=== PATIENT | female | born 1995 | race Caucasian/White ===

== ENCOUNTER 2017-07-06 00:29 | Emergency (ER) | payer BC ==
[2017-07-06] MEDS ORDERED: Ketorolac 60 MG/2 ML SDV IM ONE (00:49)
[2017-07-06] MEDS ORDERED: HYDROmorphone 1 MG/ML Syringe IM ONE ×2 (00:49→01:01)
--- NOTE | 2017-07-06 00:54 | EDM.PDOC ---
ED HPI GENERAL MEDICAL PROBLEM - General Chief Complaint: ENT Problem Stated Complaint: RIGHT SIDE JAW PAIN Time Seen by Provider: 07/06/17 00:41 Source of Information: Reports: Patient History Limitations: Reports: No Limitations - History of Present Illness INITIAL COMMENTS - FREE TEXT/NARRATIVE: The patient presents with right ear and jaw pain. This has been going on for about 2 weeks. She was given amoxicillin for an ear infection but that did not help. The pain is made worse by chewing or opening her jaw. She has no fever or chills. She has no dental pain. She has no other complaints at this time. Onset: Gradual Duration: Week(s): (2) Location: Reports: Other (Right ear and jaw) Quality: Reports: Sharp Severity: Moderate Improves with: Reports: Immobilization Worsens with: Reports: Movement Associated Symptoms: Reports: No Other Symptoms Right Ear Pain Score (Numeric/FACES): 10 - Related Data Allergies Allergy/AdvReac Type Severity Reaction Status Date / Time No Known Allergies Allergy Verified 07/06/17 00:40 Home Meds: Home Meds Ferrous Sulfate [Iron] 325 mg PO DAILY 07/06/17 [History] Vit B12/Fa/Pyridoxine HCl/AA15 [Glycotrol] 1 cap PO DAILY 07/06/17 [History] Past Medical History - Past Health History Medical/Surgical History: Denies Medical/Surgical History Social & Family History - Tobacco Use Smoking Status *Q: Never Smoker Second Hand Smoke Exposure: No - Alcohol Use Days Per Week of Alcohol Use: 0 - Recreational Drug Use Recreational Drug Use: No ED ROS ENT - Review of Systems Review Of Systems: See Below Constitutional: Reports: No Symptoms HEENT: Reports: Ear Pain (and right jaw pain) Respiratory: Reports: No Symptoms Cardiovascular: Reports: No Symptoms Endocrine: Reports: No Symptoms GI/Abdominal: Reports: No Symptoms : Reports: No Symptoms Musculoskeletal: Reports: No Symptoms ED EXAM, ENT - Physical Exam Exam: See Below Exam Limited By: No Limitations General Appearance: Alert, No Apparent Distress Ears: Normal External Exam, Normal Canal, Normal TMs Nose: Normal Inspection Mouth/Throat: Normal Inspection, Normal Gums, Normal Lips, Normal Oropharynx, Normal Teeth, Other Head: Atraumatic, Normocephalic, Other (Pain upon palpation to the right TMJ. There is some mils crepitus felt when opening her jaw in the right TMJ.) Neck: Normal Inspection, Supple, Non-Tender Respiratory/Chest: No Respiratory Distress, Lungs Clear, Normal Breath Sounds Cardiovascular: Regular Rate, Rhythm, No Edema, No Murmur GI/Abdominal: Soft, Non-Tender, No Organomegaly, No Mass Back: Normal Inspection Extremities: Normal Inspection Course - Vital Signs Last Recorded V/S: Last Vital Signs Temp 97.3 F 07/06/17 00:36 Pulse 70 07/06/17 00:36 Resp 18 07/06/17 00:36 BP 131/89 07/06/17 00:36 Pulse Ox 100 07/06/17 00:36 - Re-Assessments/Exams Free Text/Narrative Re-Assessment/Exam: 07/06/17 00:53 I ordered some toradol 60m IM and dilaudid 1mg IM. She has TMJ. She has muscle relaxers. I will give her some percocet for pain. Departure - Departure Time of Disposition: 00:55 Disposition: Home, Self-Care 01 Condition: Good Clinical Impression: TMJ (temporomandibular joint disorder) - Discharge Information Referrals: Veronica Ruiz NP [Primary Care Provider] - Art Kelly MD [Ordering Only Provider] - 1 Week Additional Instructions: Eat a soft diet. You may use ice or head to your jaw 2 to 3 times per day. Take an antiinflammatory such as motrin or aleve. Take the percocet as needed for pain. Follow up with Dr Travis Kelly or one of his partners. He is an ENT doctor at [facility] in [place]. His number is . Please return if you are worse.
[2017-07-06] MEDS ORDERED: HYDROmorphone 0.5 MG/0.5 ML SYRINGE ONE (00:59)
== END 2017-07-06 01:07 | disposition home or self-care (01) ==
LOC: JD.ED 00:29
DX: M26.69 Other specified disorders of temporomandibular joint (principal); Z79.899 Other long term (current) drug therapy
CPT/HCPCS: 96372; 99283; J1170; J1885

== ENCOUNTER 2018-10-10 02:55 | Inpatient (IN) | payer OTHER, BC ==
[2018-10-10] MEDS ORDERED: Sodium Chloride 0.9% 10 ML Syringe FLUSH PRN (10:12)
[2018-10-10] MEDS ORDERED: Nalbuphine 10 MG/1 ML Vial IVPUSH PRN (10:12)
[2018-10-10] MEDS ORDERED: Ondansetron 4 MG/2 ML SDV IVPUSH PRN ×2 (10:12→12:37)
[2018-10-10] MEDS ORDERED: Oxytocin/Lactated Ringers 10 UNIT/1,000 ML BAG IV SCH ×2 (10:15)
--- NOTE | 2018-10-10 10:15 | PCM.LDHP ---
L&D History of Present Illness - General Date of Service: 10/10/18 Admit Problem/Dx: Patient Status Order with Admit Dx/Problem 10/10/18 10:12 Patient Status [ADT] Routine Admission Diagnosis/Problem Admission Diagnosis/Problem Source of Information: Patient History Limitations: Reports: No Limitations - History of Present Illness Introduction:: Patient is a 23 y/o at 37 3/7 wks who presents for IOL for complaints of gross itching involving also her palms - concerns for cholestasis. Doing well otherwise. 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 Has had no signs of heart block throughout - Related Data Allergies/Adverse Reactions: Allergies Allergy/AdvReac Type Severity Reaction Status Date / Time animal dander Allergy Sneezing Verified 10/10/18 10:28 house dust Allergy Sneezing Verified 10/10/18 10:28 pollen extracts Allergy Sneezing Verified 10/10/18 10:28 Past Medical History Gastrointestinal History: Reports: Irritable Bowel Syndrome Genitourinary History: Reports: Pyelonephritis [employer] History: Reports: : 1 Para: 0 LMP (Approximate): Immunologic History: Reports: Other (See Below) (SSA positive) - Past Surgical History HEENT Surgical History: Reports: Eye Surgery, Oral Surgery Musculoskeletal Surgical History: Reports: Other (See Below) (finger surgery) Social & Family History - Tobacco Use Smoking Status *Q: Never Smoker - Caffeine Use Caffeine Use: Reports: None - Alcohol Use Alcohol Use History: No - Recreational Drug Use Recreational Drug Use: No H&P Review of Systems - Review of Systems: Review Of Systems: See Below General: Reports: No Symptoms Pulmonary: Reports: No Symptoms Cardiovascular: Reports: No Symptoms Gastrointestinal: Reports: No Symptoms Genitourinary: Reports: No Symptoms Musculoskeletal: Reports: No Symptoms Skin: Reports: Pruritis Neurological: Reports: No Symptoms L&D Exam - Exam Exam: See Below - OB Specific Contraction Intensity: Irritability Movement: Active Heart Tones: Present Heart Tones per Min: 135 Heart Rate (FHR) Variability: Moderate (6-25 bmp) Presentation: Vertex - Cardona Score Cardona Score Cervix Position: Posterior Cardona Score Consistency: Soft Cardona Score Effacement: 31-50% Cardona Score Dilation: 1-2 cm Cardona Score 's Station: -2 Cardona Score Total: 5 - Exam General: Alert, Oriented, Cooperative Lungs: Clear to Auscultation, Normal Respiratory Effort Cardiovascular: Regular Rate, Regular Rhythm GI/Abdominal Exam: Soft, Non-Tender Genitourinary: Normal external exam Extremities: Normal Inspection Skin: Warm, Dry, Intact - Patient Data Result Diagrams: 10/10/18 10:28 - Problem List (1) JESISE positive SNOMED Code(s): 406196798 ICD Code: R76.8 - OTHER SPECIFIED ABNORMAL IMMUNOLOGICAL FINDINGS IN SERUM Status: Acute Current Visit: Yes (2) SS-A antibody positive SNOMED Code(s): 617633958 ICD Code: R76.8 - OTHER SPECIFIED ABNORMAL IMMUNOLOGICAL FINDINGS IN SERUM Status: Acute Current Visit: Yes (3) 37 weeks gestation of SNOMED Code(s): 39591907 ICD Code: Z3A.37 - 37 WEEKS GESTATION OF Status: Acute Current Visit: Yes Problem List Initiated/Reviewed/Updated: Yes Orders Last 24hrs: Active Orders 24 hr Category Date Time Status Patient Status [ADT] Routine ADT 10/10/18 10:12 Ordered Activity as Tolerated [RC] PFP Care 10/10/18 10:12 Ordered Communication Order [RC] ASDIRECTED Care 10/10/18 10:12 Ordered Communication Order [RC] ASDIRECTED Care 10/10/18 10:12 Ordered Communication Order [RC] ASDIRECTED Care 10/10/18 10:12 Ordered Heart Tones [RC] ASDIRECTED Care 10/10/18 10:12 Ordered Monitoring [RC] INTERMITTENT Care 10/10/18 10:12 Ordered Non Stress Test [RC] PER UNIT ROUTINE Care 10/10/18 10:12 Ordered Notify Provider [RC] ASDIRECTED Care 10/10/18 10:12 Ordered Notify Provider [RC] PRN Care 10/10/18 10:12 Ordered Peripheral IV Care [RC] . DIRECTED Care 10/10/18 10:12 Ordered Vaginal Exam [RC] ASDIRECTED Care 10/10/18 10:12 Ordered Vital Signs [RC] ASDIRECTED Care 10/10/18 10:12 Ordered Regular Diet [DIET] Diet 10/10/18 Breakfast Ordered CBC W/O DIFF,HEMOGRAM [HEME] Routine Lab 10/10/18 10:12 Ordered RAPID PLASMA REAGIN,RPR [CHEM] Routine Lab 10/10/18 10:12 Ordered TYPE AND SCREEN [BBK] Routine Lab 10/10/18 10:12 Ordered Lactated Ringers [Ringers, Lactated] 1,000 ml Med 10/10/18 10:15 Ordered IV ASDIRECTED Nalbuphine [Nubain] Med 10/10/18 10:12 Ordered 10 mg IVPUSH Q2H PRN Ondansetron [Zofran] Med 10/10/18 10:12 Ordered 4 mg IVPUSH Q4H PRN Oxytocin/Lactated Ringers [Pitocin in LR 10 Units/1,000 Med 10/10/18 10:15 Ordered ML] 10 unit in 1,000 ml IV .CONTINUOUS Oxytocin/Lactated Ringers [Pitocin in LR 10 Units/1,000 Med 10/10/18 10:15 Ordered ML] 10 unit in 1,000 ml IV TITRATE Sodium Chloride 0.9% [Saline Flush] Med 10/10/18 10:12 Ordered 10 ml FLUSH ASDIRECTED PRN miSOPROStol [Cytotec] Med 10/10/18 10:12 Ordered 25 mcg VAG Q4H PRN Electronic Heart Tones Ext w TOCO [WOMSER] Oth 10/10/18 10:12 Ordered Routine Electronic Heart Tones Internal [WOMSER] Per Unit Oth 10/10/18 10:12 Ordered Routine Peripheral IV Insertion Adult [OM.PC] Routine Oth 10/10/18 10:12 Ordered Resuscitation Status Routine Resus Stat 10/10/18 10:12 Ordered Assessment/Plan Comment:: 23 y/o at 37 3/7 wks who presents for diffuse pruritus involving the palms concerning for cholestasis. Bile acids pending * Labs * GBS negative, no need for antibiotics * Salazar bulb and cytotec for IOL. AROM when able * Pain management per patient preference * Anticipate
[2018-10-10] MEDS: Misoprostol 25 MCG (1/4 of 100 MCG) Tab VAG PRN ×2 (10:48→14:48)
[2018-10-10] MEDS ORDERED: ePHEDrine 50 MG/ML SDV IVPUSH PRN (12:37)
[2018-10-10] MEDS ORDERED: fentaNYL 100 MCG/2 ML SDV EPIDUR PRN (12:37)
--- NOTE | 2018-10-10 12:37 | PCM.PREANE ---
Preanesthetic Assessment - Anesthesia/Transfusion/Family Hx Anesthesia History: Prior Anesthesia Without Reaction Family History of Anesthesia Reaction: No Transfusion History: No Prior Transfusion(s) Intubation History: Unknown - Review of Systems General: No Symptoms, Fatigue Pulmonary: No Symptoms Cardiovascular: No Symptoms, Palpitations (History of PVC's), Lightheadedness ( positonal changes.) Gastrointestinal: No Symptoms (GERD), Diarrhea, Nausea Neurological: No Symptoms (Lower back pain pain (5/10)) Other: Reports: None, Easy Bruising - Physical Assessment NPO Status Date: 10/10/18 NPO Status Time: 13:00 Pulse: 71 O2 Sat by Pulse Oximetry: 99 Respiratory Rate: 18 Blood Pressure: 120/74 Temperature: 37.1 C Vital Signs: Last Vital Signs Temp 37.1 C 10/10/18 10:12 Pulse 71 10/10/18 10:12 Resp 18 10/10/18 10:12 BP 120/74 10/10/18 10:12 Pulse Ox Height: 1.6 m Weight: 71.668 kg ASA Class: 2 Mental Status: Alert & Oriented x3 Airway Class: Mallampati = 2 Dentition: Reports: Normal Dentition, Caries Thyro-Mental Finger Breadths: 3 Mouth Opening Finger Breadths: 3 ROM/Head Extension: Full Lungs: Clear to Auscultation, Normal Respiratory Effort Cardiovascular: Regular Rate, Regular Rhythm, No Murmurs - Lab Values: Laboratory Last Values WBC 9.26 K/mm3 (3.98-10.04) 10/10/18 10:28 RBC 3.86 M/mm3 (3.98-5.22) L 10/10/18 10:28 Hgb 11.0 gm/L (11.2-15.7) L D 10/10/18 10:28 Hct 33.5 % (34.1-44.9) L 10/10/18 10:28 MCV 86.8 fl (79.4-94.8) 10/10/18 10:28 MCH 28.5 pg (25.6-32.2) 10/10/18 10:28 MCHC 32.8 g/dl (32.2-35.5) 10/10/18 10:28 RDW Std Deviation 42.8 fL (36.4-46.3) 10/10/18 10:28 Plt Count 236 K/mm3 (182-369) 10/10/18 10:28 MPV 10.7 fl (9.4-12.3) 10/10/18 10:28 Blood Type O POSITIVE 10/10/18 10:28 Gel Antibody Screen Negative 10/10/18 10:28 Above labs reviewed and noted and within acceptable ranges to proceed with epidural if desired. - Allergies Allergies/Adverse Reactions: Allergies Allergy/AdvReac Type Severity Reaction Status Date / Time animal dander Allergy Sneezing Verified 10/10/18 10:28 house dust Allergy Sneezing Verified 10/10/18 10:28 pollen extracts Allergy Sneezing Verified 10/10/18 10:28 - Anesthesia Plan Pre-Op Medication Ordered: None - Acknowledgements Anesthesia Type Planned: Epidural Pt an Appropriate Candidate for the Planned Anesthesia: Yes Alternatives and Risks of Anesthesia Discussed w Pt/Guardian: Yes Pt/Guardian Understands and Agrees with Anesthesia Plan: Yes PreAnesthesia Questionnaire - Past Health History Medical/Surgical History: Denies Medical/Surgical History HEENT History: Reports: Other (See Below) Other HEENT History: right eye surgery 1995 and 2017. 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, low serum complement c3 - Past Surgical History HEENT Surgical History: Reports: Oral Surgery - SUBSTANCE USE Smoking Status *Q: Never Smoker Recreational Drug Use History: No - CURRENT (IN HOUSE) MEDS Current Meds: Current Medications Lactated Ringer's (Ringers, Lactated) 1,000 mls @ 40 mls/hr IV ASDIRECTED MARCO ANTONIO Oxytocin/Lactated Ringer's (Pitocin In Lr 10 Units/1,000 Ml) 10 unit in 1,000 mls @ 12 mls/hr IV TITRATE MARCO ANTONIO; Protocol Oxytocin/Lactated Ringer's (Pitocin In Lr 10 Units/1,000 Ml) 10 unit in 1,000 mls @ 500 mls/hr IV .CONTINUOUS MARCO ANTONIO Misoprostol (Cytotec) 25 mcg VAG Q4H PRN PRN Reason: cervical ripening Last Admin: 10/10/18 10:48 Dose: 25 mcg Nalbuphine HCl (Nubain) 10 mg IVPUSH Q2H PRN PRN Reason: Pain Ondansetron HCl (Zofran) 4 mg IVPUSH Q4H PRN PRN Reason: Nausea/Vomiting Sodium Chloride (Saline Flush) 10 ml FLUSH ASDIRECTED PRN PRN Reason: Keep Vein Open
[2018-10-10] MEDS ORDERED: Phenylephrine 1 MG in Sodium Chloride 0.9% 10 ML IV SCH (12:45)
[2018-10-10] MEDS ORDERED: Bupivacaine/fentaNYL/NS 100 ML Bag EPIDUR SCH (12:45)
[2018-10-10] MEDS ORDERED: Acetaminophen 325 MG Tab PO ONE (14:11)
[2018-10-10] MEDS: Lactated Ringers 1,000 ML IV SCH ×2 (20:11→21:15)
--- NOTE | 2018-10-10 20:24 | PCM.PNLD ---
Labor Progress Note - VS & Meds Vital Signs: Last Vital Signs Temp 37.1 C 10/10/18 13:22 Pulse 71 10/10/18 13:22 Resp 18 10/10/18 13:22 BP 120/74 10/10/18 13:22 Pulse Ox 99 10/10/18 13:22 Active Medications: Current Medications Ephedrine Sulfate (Ephedrine Sulfate) 5 mg IVPUSH ASDIRECTED PRN PRN Reason: Hypotension Fentanyl (Sublimaze) 100 mcg EPIDUR Q3H PRN PRN Reason: Pain Last Admin: 10/10/18 19:49 Dose: 100 mcg Fentanyl/Bupivacaine HCl (Fentanyl/Bupivacaine/Ns 2 Mcg-0.125% 100 Ml) 100 ml EPIDUR ASDIRECTED MARCO ANTONIO Last Admin: 10/10/18 19:49 Dose: 100 ml Lactated Ringer's (Ringers, Lactated) 1,000 mls @ 40 mls/hr IV ASDIRECTED MARCO ANTONIO Last Admin: 10/10/18 20:11 Dose: 999 mls/hr Oxytocin/Lactated Ringer's (Pitocin In Lr 10 Units/1,000 Ml) 10 unit in 1,000 mls @ 12 mls/hr IV TITRATE MARCO ANTONIO; Protocol Oxytocin/Lactated Ringer's (Pitocin In Lr 10 Units/1,000 Ml) 10 unit in 1,000 mls @ 500 mls/hr IV .CONTINUOUS MARCO ANTONIO Phenylephrine HCl 1 mg/ Sodium (Chloride) 10.1 mls @ 1 mls/sec IV TITRATE MARCO ANTONIO; Protocol Misoprostol (Cytotec) 25 mcg VAG Q4H PRN PRN Reason: cervical ripening Last Admin: 10/10/18 14:48 Dose: 25 mcg Nalbuphine HCl (Nubain) 10 mg IVPUSH Q2H PRN PRN Reason: Pain Ondansetron HCl (Zofran) 4 mg IVPUSH Q4H PRN PRN Reason: Nausea/Vomiting Ondansetron HCl (Zofran) 4 mg IVPUSH ONETIME PRN PRN Reason: Nausea/Vomiting Sodium Chloride (Saline Flush) 10 ml FLUSH ASDIRECTED PRN PRN Reason: Keep Vein Open Discontinued Medications Acetaminophen (Tylenol) 650 mg PO NOW ONE Stop: 10/10/18 14:12 Last Admin: 10/10/18 14:20 Dose: 650 mg - Uterine Contractions Uterine Monitoring Mode: External [place] Contraction Intensity: Moderate Uterine Resting Tone: Soft - Monitoring Monitor Mode: External Ultrasound Heart Rate (FHR) Baseline: 130 Heart Rate (FHR) Variability: Moderate (6-25 bmp) Accelerations: Present, 15x15 Decelerations: None Strip Review: Category I - Vaginal Exam Dilation (cm): 4 Effacement (Percent): 50 Station: -2 Cervical Position: Midposition - Labor Progress (Free Text) Labor Progress: Doing well. Just received epidural. AROM performed with release of scant amount of clear fluid. Continue present management
[2018-10-10] MEDS ORDERED: diphenhydrAMINE 50 MG/ML SDV IVPUSH ONE (21:19)
--- NOTE | 2018-10-11 03:21 | PCM.DEL ---
L & D Note - General Info Date of Service: 10/11/18 - Delivery Note Labor: Induced by ARM, Induced by Oxytocin Cervical Ripening Method: Balloon Device, Misoprostil Delivery Outcome: Livebirth Infant Delivery Method: Spontaneous Vaginal Delivery-Single Delivery Mode: Spontaneous Presentation: Right Occiput Anterior (GEMMA) Nuchal Cord: None Anesthesia Type: Epidural Amniotic Fluid Description: Clear Episiotomy Type: None Laceration: Periurethral Suture type: Vicryl Suture size: 3-0 Placenta: Intact, Spontaneous Cord: 3 Vessels Estimated Blood Loss: 200 Resuscitation Needed: Yes [place]: Bulb Syringe, Stimulated, Warmed, [address] Used, Warmer Used Delivery Comments (Free Text/Narrative):: Patient round to be complete. With maternal pushing effort head delivered from an GEMMA presentation. No nuchal cord present. With gentle downward traction the shoulders and body delivered. Infant placed on maternal abdomen. Cord clamped and cut. Cord blood obtained. Placenta allowed time to separate and expelled intact. Inspection of the perineum showed small bilateral periurethral tears. Right sided year reapproximated with single suture of 3-0 vicryl. - General Info Date of Service: 10/11/18 - Patient Data Vitals - Most Recent: Last Vital Signs Temp 37.1 C 10/10/18 13:22 Pulse 71 10/10/18 13:22 Resp 18 10/10/18 13:22 BP 120/74 10/10/18 13:22 Pulse Ox 99 10/10/18 13:22 Weight - Most Recent: 71.668 kg I&O - Last 24 Hours: Intake & Output 10/10/18 10/10/18 10/11/18 14:59 22:59 06:59 Intake Total 1999 Balance 1999 Lab Results Last 24 Hours: Laboratory Results - last 24 hr 10/10/18 10/10/18 10/10/18 Range/Units 10:28 10:28 10:28 WBC 9.26 (3.98-10.04) K/mm3 RBC 3.86 L (3.98-5.22) M/mm3 Hgb 11.0 L D (11.2-15.7) gm/L Hct 33.5 L (34.1-44.9) % MCV 86.8 (79.4-94.8) fl MCH 28.5 (25.6-32.2) pg MCHC 32.8 (32.2-35.5) g/dl RDW Std Deviation 42.8 (36.4-46.3) fL Plt Count 236 (182-369) K/mm3 MPV 10.7 (9.4-12.3) fl RPR Non-reactive (NONREACTIVE) Blood Type O POSITIVE Gel Antibody Screen Negative Med Orders - Current: Current Medications Ephedrine Sulfate (Ephedrine Sulfate) 5 mg IVPUSH ASDIRECTED PRN PRN Reason: Hypotension Fentanyl (Sublimaze) 100 mcg EPIDUR Q3H PRN PRN Reason: Pain Last Admin: 10/10/18 19:49 Dose: 100 mcg Fentanyl/Bupivacaine HCl (Fentanyl/Bupivacaine/Ns 2 Mcg-0.125% 100 Ml) 100 ml EPIDUR ASDIRECTED MARCO ANTONIO Last Admin: 10/10/18 19:49 Dose: 100 ml Lactated Ringer's (Ringers, Lactated) 1,000 mls @ 40 mls/hr IV ASDIRECTED MARCO ANTONIO Last Admin: 10/10/18 21:15 Dose: 40 mls/hr Oxytocin/Lactated Ringer's (Pitocin In Lr 10 Units/1,000 Ml) 10 unit in 1,000 mls @ 12 mls/hr IV TITRATE MARCO ANTONIO; Protocol Last Titration: 10/11/18 02:36 Dose: 4 munits/min, 24 mls/hr Oxytocin/Lactated Ringer's (Pitocin In Lr 10 Units/1,000 Ml) 10 unit in 1,000 mls @ 500 mls/hr IV .CONTINUOUS MARCO ANTONIO Phenylephrine HCl 1 mg/ Sodium (Chloride) 10.1 mls @ 1 mls/sec IV TITRATE MARCO ANTONIO; Protocol Misoprostol (Cytotec) 25 mcg VAG Q4H PRN PRN Reason: cervical ripening Last Admin: 10/10/18 14:48 Dose: 25 mcg Nalbuphine HCl (Nubain) 10 mg IVPUSH Q2H PRN PRN Reason: Pain Ondansetron HCl (Zofran) 4 mg IVPUSH Q4H PRN PRN Reason: Nausea/Vomiting Ondansetron HCl (Zofran) 4 mg IVPUSH ONETIME PRN PRN Reason: Nausea/Vomiting Sodium Chloride (Saline Flush) 10 ml FLUSH ASDIRECTED PRN PRN Reason: Keep Vein Open Discontinued Medications Acetaminophen (Tylenol) 650 mg PO NOW ONE Stop: 10/10/18 14:12 Last Admin: 10/10/18 14:20 Dose: 650 mg Diphenhydramine HCl (Benadryl) 25 mg IVPUSH ONETIME ONE Stop: 10/10/18 21:20 Last Admin: 10/10/18 21:37 Dose: 25 mg - Problem List & Annotations (1) JESSIE positive SNOMED Code(s): 402006607 Code(s): R76.8 - OTHER SPECIFIED ABNORMAL IMMUNOLOGICAL FINDINGS IN SERUM Status: Acute Current Visit: Yes (2) SS-A antibody positive SNOMED Code(s): 122647673 Code(s): R76.8 - OTHER SPECIFIED ABNORMAL IMMUNOLOGICAL FINDINGS IN SERUM Status: Acute Current Visit: Yes (3) 37 weeks gestation of SNOMED Code(s): 46329338 Code(s): Z3A.37 - 37 WEEKS GESTATION OF Status: Acute Current Visit: Yes (4) Vaginal delivery SNOMED Code(s): 306128040 Code(s): O80 - ENCOUNTER FOR FULL-TERM UNCOMPLICATED DELIVERY Status: Acute Current Visit: Yes - Problem List Review Problem List Initiated/Reviewed/Updated: Yes - My Orders Last 24 Hours: My Active Orders 10/10/18 10:12 Patient Status [ADT] Routine Activity as Tolerated [RC] PFP Communication Order [RC] ASDIRECTED Communication Order [RC] ASDIRECTED Communication Order [RC] ASDIRECTED Notify Provider [RC] ASDIRECTED Notify Provider [RC] PRN Vital Signs [RC] ASDIRECTED Nalbuphine [Nubain] 10 mg IVPUSH Q2H PRN Ondansetron [Zofran] 4 mg IVPUSH Q4H PRN Sodium Chloride 0.9% [Saline Flush] 10 ml FLUSH ASDIRECTED PRN miSOPROStol [Cytotec] 25 mcg VAG Q4H PRN Electronic Heart Tones Ext w TOCO [WOMSER] Routine Electronic Heart Tones Internal [WOMSER] Per Unit Routine Peripheral IV Insertion Adult [OM.PC] Routine Resuscitation Status Routine 10/10/18 10:15 Lactated Ringers [Ringers, Lactated] 1,000 ml IV ASDIRECTED Oxytocin/Lactated Ringers [Pitocin in LR 10 Units/1,000 ML] 10 unit in 1,000 ml IV .CONTINUOUS Oxytocin/Lactated Ringers [Pitocin in LR 10 Units/1,000 ML] 10 unit in 1,000 ml IV TITRATE 10/10/18 Breakfast Regular Diet [DIET] - Assessment Assessment:: 23 y/o G1 now P1001 PPD#0 from at 37 4/7 wks - IOL for pruritus involving the palms concerning for cholestasis. Bile acids pending - Plan Plan:: * Routine cares * Encourage breast feeding * Discharge home in 2 days
[2018-10-11] MEDS ORDERED: Docusate Sodium 100 MG Cap PO PRN (03:27)
[2018-10-11] MEDS ORDERED: Lanolin 100% Cream 7 GM Tube TOP PRN (03:27)
[2018-10-11] MEDS ORDERED: Benzocaine/Menthol 20%-0.5% Spray 56 GM Canister TOP PRN (03:27)
[2018-10-11] MEDS ORDERED: Witch Hazel Medicated Pads 40/Jar TOP PRN (03:27)
[2018-10-11] MEDS: Acetaminophen 325 MG Tab PO PRN ×2 (03:39→18:18)
[2018-10-11] MEDS ORDERED: Bupivacaine 0.25% 10 ML SDV ONE (04:00)
[2018-10-11] MEDS: Ibuprofen 600 MG Tab PO PRN ×2 (08:49→16:13)
--- NOTE | 2018-10-11 12:26 | PCM48HPAN ---
Post Anesthesia Note - EVALUATION WITHIN 48HRS OF ANESTHETIC Vital Signs in Normal Range: Yes Patient Participated in Evaluation: Yes Respiratory Function Stable: Yes Airway Patent: Yes Cardiovascular Function Stable: Yes Hydration Status Stable: Yes Pain Control Satisfactory: Yes Nausea and Vomiting Control Satisfactory: Yes Mental Status Recovered: Yes
[2018-10-12] MEDS: Ibuprofen 600 MG Tab PO PRN (02:02)
--- NOTE | 2018-10-12 11:08 | PCM.SN ---
- Free Text/Narrative Note: Post Progress Note PPD # 1 Subjective: Doing well overall. Ambulating without difficulty. Lochia minimal and slowing down since delivery. Voiding without difficulty. Tolerating regular diet without nausea or vomiting. Pain controlled with oral medications. Bottlefeeding with minimal difficulty. Objective: Vitals: Vital Signs - 24 hr 10/11/18 10/11/18 10/12/18 14:29 21:20 04:43 Temperature 36.7 C 37.1 C 36.6 C Pulse, 61 58 L 63 Peripheral Respiratory 14 16 14 Rate Blood Pressure 128/83 115/61 110/87 O2 Sat by Pulse 99 99 99 Oximetry 10/12/18 08:38 Temperature 36.6 C Pulse, 69 Peripheral Respiratory 16 Rate Blood Pressure 120/89 O2 Sat by Pulse 96 Oximetry Physical Exam General: Alert and oriented, no acute distress Lungs: Clear to auscultation bilaterally Heart: Regular rate and rhythm Abdomen: Soft, minimal appropriate tenderness, non-distended, fundus midline, nontender, and at the umbilicus Extremities: Trace edema in bilateral lower extremities to mid shins ASSESSMENT: 23-year-old female 001 s/p normal vaginal delivery PPD #1, complicated by SSA antibody positive with normal echocardiograms during and question of possible cholestasis of with severe itching including on the palms of her hands PLAN: Doing well Bottlefeeding with minimal difficulty. Assist as needed Lochia minimal. Continue to monitor for appropriate lochia. Continue routine care Anticipate discharge home today Ramesh Wilson MD 11:07 AM 10/12/2018
--- NOTE | 2018-10-12 11:13 | PCM.DCSUM1 ---
Discharge Summary - Hospital Course Free Text/Narrative:: Labor: Induced by ARM, Induced by Oxytocin Cervical Ripening Method: Balloon Device, Misoprostil Delivery Outcome: Livebirth Delivery Method: Spontaneous Vaginal Delivery-Single Delivery Mode: Spontaneous Presentation: Right Occiput Anterior (GEMMA) Nuchal Cord: None Anesthesia Type: Epidural Amniotic Fluid Description: Clear Episiotomy Type: None Laceration: Periurethral Suture type: Vicryl Suture size: 3-0 Placenta: Intact, Spontaneous Cord: 3 Vessels Estimated Blood Loss: 200 Resuscitation Needed: Yes : Bulb Syringe, Stimulated, Warmed, [place] Used, Warmer Used Delivery Comments (Free Text/Narrative):: Patient round to be complete. With maternal pushing effort head delivered from an GEMMA presentation. No nuchal cord present. With gentle downward traction the shoulders and body delivered. placed on maternal abdomen. Cord clamped and cut. Cord blood obtained. Placenta allowed time to separate and expelled intact. Inspection of the perineum showed small bilateral periurethral tears. Right sided year reapproximated with single suture of 3-0 vicryl. HPI Initial Comments: Labor: Induced by ARM, Induced by Oxytocin Cervical Ripening Method: Balloon Device, Misoprostil Delivery Outcome: Livebirth Infant Delivery Method: Spontaneous Vaginal Delivery-Single Delivery Mode: Spontaneous Presentation: Right Occiput Anterior (GEMMA) Nuchal Cord: None Anesthesia Type: Epidural Amniotic Fluid Description: Clear Episiotomy Type: None Laceration: Periurethral Suture type: Vicryl Suture size: 3-0 Placenta: Intact, Spontaneous Cord: 3 Vessels Estimated Blood Loss: 200 Resuscitation Needed: Yes : Bulb Syringe, Stimulated, Warmed, [place] Used, Warmer Used Delivery Comments (Free Text/Narrative):: Patient round to be complete. With maternal pushing effort head delivered from an GEMMA presentation. No nuchal cord present. With gentle downward traction the shoulders and body delivered. placed on maternal abdomen. Cord clamped and cut. Cord blood obtained. Placenta allowed time to separate and expelled intact. Inspection of the perineum showed small bilateral periurethral tears. Right sided year reapproximated with single suture of 3-0 vicryl. Brief History: Labor: Induced by ARM, Induced by Oxytocin. Cervical Ripening Method: Balloon Device, Misoprostil. Delivery Outcome: Livebirth. Infant Delivery Method: Spontaneous Vaginal Delivery-Single. Infant Delivery Mode: Spontaneous. Presentation: Right Occiput Anterior (GEMMA). Nuchal Cord: None. Anesthesia Type: Epidural. Amniotic Fluid Description: Clear. Episiotomy Type: None. Laceration: Periurethral. Suture type: Vicryl. Suture size: 3-0. Placenta: Intact, Spontaneous. Cord: 3 Vessels. Estimated Blood Loss: 200. Resuscitation Needed: Yes. : Bulb Syringe, Stimulated, Warmed, [place] Used, Warmer Used. Delivery Comments (Free Text/Narrative):: Patient round to be complete. With maternal pushing effort head delivered from an GEMMA presentation. No nuchal cord present. With gentle downward traction the shoulders and body delivered. placed on maternal abdomen. Cord clamped and cut. Cord blood obtained. Placenta allowed time to separate and expelled intact. Inspection of the perineum showed small bilateral periurethral tears. Right sided year reapproximated with single suture of 3-0 vicryl. Diagnosis: Stroke: No - Discharge Data Discharge Date: 10/12/18 Discharge Disposition: Home, Self-Care 01 Condition: Good - Discharge Diagnosis/Problem(s) (1) 37 weeks gestation of SNOMED Code(s): 87617945 ICD Code: Z3A.37 - 37 WEEKS GESTATION OF Status: Acute Current Visit: Yes (2) SS-A antibody positive SNOMED Code(s): 409630378 ICD Code: R76.8 - OTHER SPECIFIED ABNORMAL IMMUNOLOGICAL FINDINGS IN SERUM Status: Acute Current Visit: Yes (3) Vaginal delivery SNOMED Code(s): 923819191 ICD Code: O80 - ENCOUNTER FOR FULL-TERM UNCOMPLICATED DELIVERY Status: Acute Current Visit: Yes - Patient Summary/Data Complications: None Consults: None Hospital Course: Dinorah Khan was admitted for induction of labor in the setting of concern for cholestasis of was severe itching including the palms of her hands. On admission her cervix was dilated to 1-2 cm. She was GBS negative. She was given Cytotec for induction of labor. She had a transcervical Salazar bulb placed for additional cervical ripening. She was given an epidural for anesthesia. She had artificial rupture of membranes with clear fluid. She progressed to complete and began pushing. On 10/11/2018 she had a normal vaginal delivery of a live female infant at 0255. Apgars of 8 and 9. Weight of 2693 g (5 lbs. 15 oz.). Her course was uneventful. Her pain was well controlled and she had minimal lochia. She was ambulating, tolerating a regular diet and voiding normally. She was bottlefeeding with minimal difficulty. She was afebrile and her hematocrit was 33.5 on admission. She desired to be discharged home on the morning of PPD #1. Her blood type is O+. - Patient Instructions Diet: Regular Diet as Tolerated Activity: Apply Ice, As Tolerated Activity, Other: Nothing in the vagina for 6 weeks Driving: May Drive Today Showering/Bathing: May Shower Notify Provider of: Fever, Increased Pain, Swelling and Redness, Drainage, Nausea and/or Vomiting Other/Special Instructions: Please contact your physician's office if you have heavy vaginal bleeding enough to soak a pad in less than an hour for several hours. Monitor for any signs of an infection in the breasts with severe pain or redness of the breast. - Discharge Plan *PRESCRIPTION DRUG MONITORING PROGRAM REVIEWED*: Not Applicable *COPY OF PRESCRIPTION DRUG MONITORING REPORT IN PATIENT CHANDNI: Not Applicable Home Medications: Home Meds Acetaminophen [Tylenol] 650 mg PO Q6H PRN tablet 10/12/18 [Rx] Benzocaine/Menthol [Dermoplast Pain Relief [place]] 1 spray TOP ASDIRECTED PRN canister 10/12/18 [Rx] Docusate Sodium [Colace] 100 mg PO BID PRN cap 10/12/18 [Rx] Ibuprofen [Motrin] 600 mg PO Q6H PRN tablet 10/12/18 [Rx] Lanolin [Lansinoh HPA] 1 applic TOP ASDIRECTED PRN tube 10/12/18 [Rx] Witch [place] [Tucks] 1 pad TOP ASDIRECTED PRN pad 10/12/18 [Rx] Patient Handouts: Vaginal Delivery, Care After, Care of a Perineal Tear Referrals: Pita Calix MD [Primary Care Provider] - - Discharge Summary/Plan Comment DC Time >30 min.: No - Patient Data Vitals - Most Recent: Last Vital Signs Temp 36.6 C 10/12/18 08:38 Pulse 69 10/12/18 08:38 Resp 16 10/12/18 08:38 BP 120/89 10/12/18 08:38 Pulse Ox 96 10/12/18 08:38 Weight - Most Recent: 71.668 kg I&O - Last 24 hours: Intake & Output 10/11/18 10/12/18 10/12/18 22:59 06:59 14:59 Intake Total 66 Balance 66 Med Orders - Current: Current Medications Acetaminophen (Tylenol) 650 mg PO Q4H PRN PRN Reason: mild pain or fever Last Admin: 10/11/18 18:18 Dose: 650 mg Benzocaine/Menthol (Dermoplast Pain Relief [place]) 0 gm TOP ASDIRECTED PRN PRN Reason: Perineal Comfort Measure Docusate Sodium (Colace) 100 mg PO BID PRN PRN Reason: Constipation Last Admin: 10/11/18 22:06 Dose: 100 mg Emollient Ointment (Lansinoh Hpa) 0 gm TOP ASDIRECTED PRN PRN Reason: Sore Nipples Ibuprofen (Motrin) 600 mg PO Q6H PRN PRN Reason: Mild pain or fever Last Admin: 10/12/18 02:02 Dose: 600 mg Witch [place] (Tucks) 1 pad TOP ASDIRECTED PRN PRN Reason: Perineal Comfort Measure Discontinued Medications Acetaminophen (Tylenol) 650 mg PO NOW ONE Stop: 10/10/18 14:12 Last Admin: 10/10/18 14:20 Dose: 650 mg Bupivacaine HCl (Sensorcaine-Mpf 0.25%) 10 ml .ROUTE .STK-MED ONE Stop: 10/11/18 04:01 Diphenhydramine HCl (Benadryl) 25 mg IVPUSH ONETIME ONE Stop: 10/10/18 21:20 Last Admin: 10/10/18 21:37 Dose: 25 mg Ephedrine Sulfate (Ephedrine Sulfate) 5 mg IVPUSH ASDIRECTED PRN PRN Reason: Hypotension Fentanyl (Sublimaze) 100 mcg EPIDUR Q3H PRN PRN Reason: Pain Last Admin: 10/10/18 19:49 Dose: 100 mcg Fentanyl/Bupivacaine HCl (Fentanyl/Bupivacaine/Ns 2 Mcg-0.125% 100 Ml) 100 ml EPIDUR ASDIRECTED MARCO ANTONIO Last Admin: 10/10/18 19:49 Dose: 100 ml Lactated Ringer's (Ringers, Lactated) 1,000 mls @ 40 mls/hr IV ASDIRECTED MARCO ANTONIO Last Admin: 10/10/18 21:15 Dose: 40 mls/hr Oxytocin/Lactated Ringer's (Pitocin In Lr 10 Units/1,000 Ml) 10 unit in 1,000 mls @ 12 mls/hr IV TITRATE MARCO ANTONIO; Protocol Last Titration: 10/11/18 02:36 Dose: 4 munits/min, 24 mls/hr Oxytocin/Lactated Ringer's (Pitocin In Lr 10 Units/1,000 Ml) 10 unit in 1,000 mls @ 500 mls/hr IV .CONTINUOUS MARCO ANTONIO Phenylephrine HCl 1 mg/ Sodium (Chloride) 10.1 mls @ 1 mls/sec IV TITRATE MARCO ANTONIO; Protocol Misoprostol (Cytotec) 25 mcg VAG Q4H PRN PRN Reason: cervical ripening Last Admin: 10/10/18 14:48 Dose: 25 mcg Nalbuphine HCl (Nubain) 10 mg IVPUSH Q2H PRN PRN Reason: Pain Ondansetron HCl (Zofran) 4 mg IVPUSH Q4H PRN PRN Reason: Nausea/Vomiting Ondansetron HCl (Zofran) 4 mg IVPUSH ONETIME PRN PRN Reason: Nausea/Vomiting Sodium Chloride (Saline Flush) 10 ml FLUSH ASDIRECTED PRN PRN Reason: Keep Vein Open
== END 2018-10-12 11:30 | disposition home or self-care (01) | DRG 805 ==
LOC: JD.OB 02:55 → UNDOADMOB 10:00 → JD.OB 10-11 02:55 → OBSVTOIN 10-11 02:55
PROVIDERS: ADMIT Obstetrics & Gynecology; ATTEND Obstetrics & Gynecology
PROC: 10E0XZZ Delivery of Products of Conception, External Approach (ICD-10-PCS; principal; 2018-10-11)
PROC: 10907ZC Drainage of Amniotic Fluid, Therapeutic from Products of Conception, Via Natural or Artificial Opening (ICD-10-PCS; 2018-10-11)
PROC: 3E033VJ Introduction of Other Hormone into Peripheral Vein, Percutaneous Approach (ICD-10-PCS; 2018-10-11)
PROC: 3E0P7VZ Introduction of Hormone into Female Reproductive, Via Natural or Artificial Opening (ICD-10-PCS; 2018-10-11)
PROC: 0UQMXZZ Repair Vulva, External Approach (ICD-10-PCS; 2018-10-11)
PROC: 4A1HXCZ Monitoring of Products of Conception, Cardiac Rate, External Approach (ICD-10-PCS; 2018-10-11)
DX: O26.62 Liver and biliary tract disorders in childbirth (principal); K83.1 Obstruction of bile duct; Z37.0 Single live birth; O71.82 Other specified trauma to perineum and vulva; O26.893 Other specified pregnancy related conditions, third trimester; L29.8 Other pruritus; Z3A.37 37 weeks gestation of pregnancy
CPT/HCPCS: 36415; 51702; 59025; 59409; 85027; 86592; 86850; 86900; 86901; A9270-GY; J1200; J2590; J3010; J3490; J7120

== ENCOUNTER 2020-03-22 15:46 | Inpatient (IN) | payer BC ==
[2020-03-22] MEDS ORDERED: Nalbuphine 10 MG/1 ML Vial IVPUSH PRN (16:32)
[2020-03-22] MEDS ORDERED: Sodium Chloride 0.9% 10 ML Syringe FLUSH PRN (16:32)
[2020-03-22] MEDS ORDERED: Ondansetron 4 MG/2 ML SDV IVPUSH PRN (16:32)
--- NOTE | 2020-03-22 16:34 | PCM.LDHP ---
L&D History of Present Illness - General Date of Service: 03/22/20 Admit Problem/Dx: Patient Status Order with Admit Dx/Problem 03/22/20 16:32 Patient Status [ADT] Routine Admission Diagnosis/Problem Admission Diagnosis/Problem Normal Source of Information: Patient History Limitations: Reports: No Limitations - History of Present Illness Introduction:: Patient is a 24 y/o at 37 1/7 wks who presents for IOL for presumed cholestasis of . Doing well overall, but this weekend started to notice pronounced itching of the lower legs. No other exposures or other concerns - Related Data Allergies/Adverse Reactions: Allergies Allergy/AdvReac Type Severity Reaction Status Date / Time No Known Allergies Allergy Verified 03/22/20 18:08 Home Medications: Home Meds Acetaminophen/Codeine [Tylenol with Codeine No.3 300MG/30MG] 1 - 2 tab PO Q6H PRN 03/22/20 [History] Omeprazole 20 mg PO DAILY 03/22/20 [History] Ondansetron [Zofran ODT] 8 mg PO Q8HR 03/22/20 [History] Past Medical History HEENT History: Reports: Impaired Vision Respiratory History: Reports: Asthma Other Respiratory History: exercise induced asthma Gastrointestinal History: Reports: Irritable Bowel Syndrome Genitourinary History: Reports: Pyelonephritis [employer]ACH History: Reports: : 2 Para: 1 LMP (Approximate): Immunologic History: Reports: Other (See Below) (SSA positive) - Past Surgical History HEENT Surgical History: Reports: Eye Surgery, Oral Surgery Social & Family History - Tobacco Use Tobacco Use Status *Q: Never Tobacco User - Caffeine Use Caffeine Use: Reports: Coffee - Alcohol Use Alcohol Use History: No - Recreational Drug Use Recreational Drug Use: No H&P Review of Systems - Review of Systems: Review Of Systems: See Below General: Reports: No Symptoms Pulmonary: Reports: No Symptoms Cardiovascular: Reports: No Symptoms Gastrointestinal: Reports: No Symptoms Genitourinary: Reports: Incontinence Musculoskeletal: Reports: No Symptoms Skin: Reports: Pruritis Neurological: Reports: No Symptoms L&D Exam - Exam Exam: See Below - OB Specific Contraction Intensity: Mild Movement: Active Heart Tones: Present Heart Tones per Min: 145 Heart Rate (FHR) Variability: Moderate (6-25 bmp) Presentation: Vertex - Cardona Score Cardona Score Cervix Position: Posterior Cardona Score Consistency: Soft Cardona Score Effacement: 31-50% Cardona Score Dilation: 1-2 cm Cardona Score Infant's Station: -1 ,0 Cardona Score Total: 6 - Exam General: Alert, Oriented, Cooperative Lungs: Clear to Auscultation, Normal Respiratory Effort Cardiovascular: Regular Rate, Regular Rhythm GI/Abdominal Exam: Soft Genitourinary: Normal external exam Extremities: Normal Inspection Skin: Warm, Dry, Intact - Patient Data Result Diagrams: 03/22/20 17:00 03/22/20 17:00 - Problem List (1) 37 weeks gestation of SNOMED Code(s): 17236462 ICD Code: Z3A.37 - 37 WEEKS GESTATION OF Status: Acute Current Visit: No (2) JESSIE positive SNOMED Code(s): 638282385 ICD Code: R76.8 - OTHER SPECIFIED ABNORMAL IMMUNOLOGICAL FINDINGS IN SERUM Status: Acute Current Visit: No (3) SS-A antibody positive SNOMED Code(s): 580267641, 096883235 ICD Code: R76.8 - OTHER SPECIFIED ABNORMAL IMMUNOLOGICAL FINDINGS IN SERUM Status: Acute Current Visit: No (4) Solar pruritus SNOMED Code(s): 851456369 ICD Code: L29.9 - PRURITUS, UNSPECIFIED Status: Acute Current Visit: Yes Problem List Initiated/Reviewed/Updated: Yes Orders Last 24hrs: Active Orders 24 hr Category Date Time Status Patient Status [ADT] Routine ADT 03/22/20 16:32 Ordered Communication Order [RC] ASDIRECTED Care 03/22/20 16:32 Ordered Communication Order [RC] ASDIRECTED Care 03/22/20 16:32 Ordered Communication Order [RC] ASDIRECTED Care 03/22/20 16:32 Ordered Heart Tones [RC] ASDIRECTED Care 03/22/20 16:33 Ordered Non Stress Test [RC] PER UNIT ROUTINE Care 03/22/20 16:32 Ordered Notify Provider [RC] ASDIRECTED Care 03/22/20 16:32 Ordered Notify Provider [RC] PRN Care 03/22/20 16:32 Ordered Peripheral IV Care [RC] . DIRECTED Care 03/22/20 16:33 Ordered Vaginal Exam [RC] ASDIRECTED Care 03/22/20 16:32 Ordered Vital Signs [RC] ASDIRECTED Care 03/22/20 16:32 Ordered Regular Diet [DIET] Diet 03/22/20 Breakfast Ordered CBC W/O DIFF,HEMOGRAM [HEME] Stat Lab 03/22/20 16:32 Ordered CORONAVIRUS COVID-19 RUDDY [MOLEC] Stat Lab 03/22/20 16:34 Ordered RAPID PLASMA REAGIN,RPR [CHEM] Routine Lab 03/22/20 16:32 Ordered TYPE AND SCREEN [BBK] Stat Lab 03/22/20 16:32 Ordered Lactated Ringers [Ringers, Lactated] 1,000 ml Med 03/22/20 16:45 Ordered IV ASDIRECTED Nalbuphine [Nubain] Med 03/22/20 16:32 Ordered 10 mg IVPUSH Q2H PRN Ondansetron [Zofran] Med 03/22/20 16:32 Ordered 4 mg IVPUSH Q4H PRN Oxytocin/Lactated Ringers [Pitocin in LR 10 Units/1,000 Med 03/22/20 16:45 Ordered ML] 10 unit in 1,000 ml IV .CONTINUOUS Oxytocin/Lactated Ringers [Pitocin in LR 10 Units/1,000 Med 03/22/20 16:45 Ordered ML] 10 unit in 1,000 ml IV TITRATE Sodium Chloride 0.9% [Saline Flush] Med 03/22/20 16:32 Ordered 10 ml FLUSH ASDIRECTED PRN Electronic Heart Tones Ext w TOCO [WOMSER] Oth 03/22/20 16:32 Ordered Routine Electronic Heart Tones Internal [WOMSER] Per Unit Oth 03/22/20 16:32 Ordered Routine Peripheral IV Insertion Adult [OM.PC] Routine Ot 03/22/20 16:32 Ordered Resuscitation Status Routine Resus Stat 03/22/20 16:32 Ordered Assessment/Plan Comment:: * IOL for presumed cholestasis. Bile acids and CMP ordered * Admit labs * Pitocin and AROM for IOL * GBS negative * Pain management per patient preference
[2020-03-22] MEDS ORDERED: Oxytocin/Lactated Ringers 10 UNIT/1,000 ML BAG IV SCH (16:45)
[2020-03-22] MEDS: Lactated Ringers 1,000 ML IV SCH ×3 (16:54→22:39)
[2020-03-22] MEDS: Oxytocin/Lactated Ringers 10 UNIT/1,000 ML BAG IV SCH (16:55)
[2020-03-22] MEDS: diphenhydrAMINE 50 MG/ML SDV IVPUSH PRN (19:37)
[2020-03-22] MEDS ORDERED: fentaNYL 100 MCG/2 ML SDV EPIDUR PRN (20:03)
[2020-03-22] MEDS ORDERED: Bupivacaine/fentaNYL/NS 100 ML Bag EPIDUR PRN (20:03)
[2020-03-22] MEDS ORDERED: diphenhydrAMINE 50 MG/ML SDV IVPUSH PRN (20:03)
[2020-03-22] MEDS ORDERED: ePHEDrine 50 MG/ML SDV IVPUSH PRN (20:03)
--- NOTE | 2020-03-22 20:37 | PCM.PREANE ---
Preanesthetic Assessment - Procedure Proposed Procedure: Epidural - Anesthesia/Transfusion/Family Hx Anesthesia History: Prior Anesthesia Without Reaction Family History of Anesthesia Reaction: No Transfusion History: No Prior Transfusion(s) Intubation History: Unknown - Review of Systems General: Fatigue Pulmonary: No Symptoms Cardiovascular: No Symptoms Gastrointestinal: Abdominal Pain (labor) Neurological: No Symptoms Other: Reports: None - Physical Assessment Vital Signs: Last Vital Signs Temp 37.6 C 03/22/20 16:32 Pulse Resp 14 03/22/20 16:32 BP 115/73 03/22/20 16:32 Pulse Ox 100 03/22/20 16:32 Height: 1.6 m Weight: 69.309 kg ASA Class: 2 Mental Status: Alert & Oriented x3 Airway Class: Mallampati = 1 Dentition: Reports: Normal Dentition Thyro-Mental Finger Breadths: 3 Mouth Opening Finger Breadths: 3 ROM/Head Extension: Full Lungs: Clear to Auscultation, Normal Respiratory Effort Cardiovascular: Regular Rate, Regular Rhythm - Lab Values: Laboratory Last Values WBC 10.71 K/mm3 (3.98-10.04) H 03/22/20 17:00 RBC 3.65 M/mm3 (3.98-5.22) L 03/22/20 17:00 Hgb 10.5 gm/dl (11.2-15.7) L 03/22/20 17:00 Hct 31.7 % (34.1-44.9) L 03/22/20 17:00 MCV 86.8 fl (79.4-94.8) 03/22/20 17:00 MCH 28.8 pg (25.6-32.2) 03/22/20 17:00 MCHC 33.1 g/dl (32.2-35.5) 03/22/20 17:00 RDW Std Deviation 42.5 fL (36.4-46.3) 03/22/20 17:00 Plt Count 259 K/mm3 (182-369) 03/22/20 17:00 MPV 10.1 fl (9.4-12.3) 03/22/20 17:00 Sodium 136 mEq/L (136-145) 03/22/20 17:00 Potassium 3.5 mEq/L (3.5-5.1) 03/22/20 17:00 Chloride 101 mEq/L (98-107) 03/22/20 17:00 Carbon Dioxide 21 mEq/L (21-32) 03/22/20 17:00 Anion Gap 17.5 (5-15) H 03/22/20 17:00 BUN 6 mg/dL (7-18) L 03/22/20 17:00 Creatinine 0.7 mg/dL (0.55-1.02) 03/22/20 17:00 Est Cr Clr Drug Dosing TNP 03/22/20 17:00 Estimated GFR (MDRD) > 60 mL/min (>60) 03/22/20 17:00 BUN/Creatinine Ratio 8.6 (14-18) L 03/22/20 17:00 Glucose 113 mg/dL (74-106) H 03/22/20 17:00 Calcium 8.4 mg/dL (8.5-10.1) L 03/22/20 17:00 Total Bilirubin 0.3 mg/dL (0.2-1.0) 03/22/20 17:00 AST 19 U/L (15-37) 03/22/20 17:00 ALT 17 U/L (14-59) 03/22/20 17:00 Alkaline Phosphatase 157 U/L (46-116) H 03/22/20 17:00 Total Protein 6.8 g/dl (6.4-8.2) 03/22/20 17:00 Albumin 2.5 g/dl (3.4-5.0) L 03/22/20 17:00 Globulin 4.3 gm/dL 03/22/20 17:00 Albumin/Globulin Ratio 0.6 (1-2) L 03/22/20 17:00 Blood Type O POSITIVE 03/22/20 17:00 Gel Antibody Screen Negative 03/22/20 17:00 - Allergies Allergies/Adverse Reactions: Allergies Allergy/AdvReac Type Severity Reaction Status Date / Time No Known Allergies Allergy Verified 03/22/20 18:08 - Anesthesia Plan Pre-Op Medication Ordered: None - Acknowledgements Anesthesia Type Planned: Epidural Pt an Appropriate Candidate for the Planned Anesthesia: Yes Alternatives and Risks of Anesthesia Discussed w Pt/Guardian: Yes Pt/Guardian Understands and Agrees with Anesthesia Plan: Yes PreAnesthesia Questionnaire - Past Health History Medical/Surgical History: Denies Medical/Surgical History HEENT History: Reports: Impaired Vision Other HEENT History: eye surgery Cardiovascular History: Reports: Arrhythmia, Other (See Below) Other Cardiovascular History: PVC's Respiratory History: Reports: Asthma Other Respiratory History: exercise induced asthma Gastrointestinal History: Reports: GERD, Other (See Below) Other Gastrointestinal History: Cholestasis Genitourinary History: Reports: Pyelonephritis [employer] History: Reports: Musculoskeletal History: Reports: Other (See Below) Other Musculoskeletal History: hand surgery Psychiatric History: Reports: Other (See Below) Other Psychiatric History: Depression Hematologic History: Reports: Other (See Below) Other Hematologic History: positive antinuclear antibody, SS-A antibody positive, 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, low serum complement c3 Immunologic History: Reports: Other (See Below) (SSA positive) - Infectious Disease History Infectious Disease History: Reports: Novel Coronavirus - Past Surgical History HEENT Surgical History: Reports: Eye Surgery, Oral Surgery - SUBSTANCE USE Tobacco Use Status *Q: Never Tobacco User Second Hand Smoke Exposure: No Days Per Week of Alcohol Use: 0 Number of Drinks Per Day: 0 Total Drinks Per Week: 0 Recreational Drug Use History: No - HOME MEDS Home Medications: Home Meds Acetaminophen/Codeine [Tylenol with Codeine No.3 300MG/30MG] 1 - 2 tab PO Q6H PRN 03/22/20 [History] Omeprazole 20 mg PO DAILY 03/22/20 [History] Ondansetron [Zofran ODT] 8 mg PO Q8HR 03/22/20 [History] - CURRENT (IN HOUSE) MEDS Current Meds: Current Medications Diphenhydramine HCl (Benadryl) 25 mg IVPUSH Q6H PRN PRN Reason: Itching Last Admin: 03/22/20 19:37 Dose: 25 mg Documented by: Diphenhydramine HCl (Benadryl) 25 mg IVPUSH Q6H PRN PRN Reason: pruritis Ephedrine Sulfate (Ephedrine Sulfate) 5 mg IVPUSH ASDIRECTED PRN PRN Reason: Hypotension Fentanyl (Sublimaze) 100 mcg EPIDUR Q3H PRN PRN Reason: Pain Fentanyl/Bupivacaine HCl (Fentanyl/Bupivacaine/Ns 2 Mcg-0.125% 100 Ml) 100 ml EPIDUR ASDIRECTED PRN PRN Reason: Pain Oxytocin/Lactated Ringer's (Pitocin In Lr 10 Units/1,000 Ml) 10 unit in 1,000 mls @ 12 mls/hr IV TITRATE MARCO ANTONIO; Protocol Last Titration: 03/22/20 19:15 Dose: 10 munits/min, 60 mls/hr Documented by: Oxytocin/Lactated Ringer's (Pitocin In Lr 10 Units/1,000 Ml) 10 unit in 1,000 mls @ 500 mls/hr IV .CONTINUOUS MARCO ANTONIO Lactated Ringer's (Ringers, Lactated) 1,000 mls @ 40 mls/hr IV ASDIRECTED MARCO ANTONIO Last Admin: 03/22/20 19:38 Dose: 40 mls/hr Documented by: Nalbuphine HCl (Nubain) 10 mg IVPUSH Q2H PRN PRN Reason: Pain Ondansetron HCl (Zofran) 4 mg IVPUSH Q4H PRN PRN Reason: Nausea/Vomiting Sodium Chloride (Saline Flush) 10 ml FLUSH ASDIRECTED PRN PRN Reason: Keep Vein Open
[2020-03-23] MEDS ORDERED: Bupivacaine 0.25% 10 ML SDV ONE
[2020-03-23] MEDS ORDERED: ePHEDrine Sulfate/0.9% NaCl/Pf 25 MG/5 ML SYRINGE IV ONE
[2020-03-23] MEDS: diphenhydrAMINE 50 MG/ML SDV IVPUSH PRN (01:13)
[2020-03-23] MEDS: Lactated Ringers 1,000 ML IV SCH (03:05)
[2020-03-23] MEDS: Oxytocin/Lactated Ringers 10 UNIT/1,000 ML BAG IV SCH (03:05)
--- NOTE | 2020-03-23 04:41 | PCM.DEL ---
L & D Note - General Info Date of Service: 03/23/20 - Delivery Note Labor: Induced by ARM, Induced by Oxytocin Delivery Outcome: Livebirth Infant Delivery Method: Spontaneous Vaginal Delivery-Single Infant Delivery Mode: Spontaneous Presentation: Left Occiput Anterior (DARREL) Nuchal Cord: None Anesthesia Type: Epidural Amniotic Fluid Description: Clear Episiotomy Type: None Laceration: 1st Degree, Labial, Perineal Suture type: Vicryl Suture size: 2-0 Placenta: Intact, Spontaneous Cord: 3 Vessels Estimated Blood Loss: 150 Resuscitation Needed: Yes : Bulb Syringe, Stimulated, Warmed, [place] Used Delivery Comments (Free Text/Narrative):: Patient found to be complete and began pushing. With maternal pushing effort head delivered from DARREL presentation. No nuchal cord present. With gentle downward traction the shoulder and body delivered. placed on maternal abdomen. Cord clamped and cut. Cord blood collected. Placenta allowed time to separate and expelled intact. Inspection of perineum showed a small right labial tear and a small 1st degree perineal tear. These were both approximated with a 2-0 vicryl. - General Info Date of Service: 03/23/20 - Patient Data Vitals - Most Recent: Last Vital Signs Temp 37.6 C 03/22/20 16:32 Pulse Resp 14 03/22/20 16:32 BP 115/73 03/22/20 16:32 Pulse Ox 100 03/22/20 16:32 Weight - Most Recent: 69.309 kg I&O - Last 24 Hours: Intake & Output 03/22/20 03/22/20 03/23/20 14:59 22:59 06:59 Intake Total 1999 Balance 1999 - Problem List & Annotations (1) 37 weeks gestation of SNOMED Code(s): 10261670 Code(s): Z3A.37 - 37 WEEKS GESTATION OF Status: Acute Current Visit: No (2) JESSIE positive SNOMED Code(s): 575219289 Code(s): R76.8 - OTHER SPECIFIED ABNORMAL IMMUNOLOGICAL FINDINGS IN SERUM Status: Acute Current Visit: No (3) SS-A antibody positive SNOMED Code(s): 483364356, 747621915 Code(s): R76.8 - OTHER SPECIFIED ABNORMAL IMMUNOLOGICAL FINDINGS IN SERUM Status: Acute Current Visit: No (4) Solar pruritus SNOMED Code(s): 204072576 Code(s): L29.9 - PRURITUS, UNSPECIFIED Status: Acute Current Visit: Yes (5) Vaginal delivery SNOMED Code(s): 073532442 Code(s): O80 - ENCOUNTER FOR FULL-TERM UNCOMPLICATED DELIVERY Status: Acute Current Visit: No - Problem List Review Problem List Initiated/Reviewed/Updated: Yes - My Orders Last 24 Hours: My Active Orders 03/22/20 Breakfast Regular Diet [DIET] 03/22/20 16:32 Patient Status [ADT] Routine Communication Order [RC] ASDIRECTED Communication Order [RC] ASDIRECTED Communication Order [RC] ASDIRECTED Non Stress Test [RC] PER UNIT ROUTINE Notify Provider [RC] ASDIRECTED Notify Provider [RC] PRN Vital Signs [RC] 03,09,15,21 Nalbuphine [Nubain] 10 mg IVPUSH Q2H PRN Ondansetron [Zofran] 4 mg IVPUSH Q4H PRN Sodium Chloride 0.9% [Saline Flush] 10 ml FLUSH ASDIRECTED PRN Electronic Heart Tones Ext w TOCO [WOMSER] Routine Electronic Heart Tones Internal [WOMSER] Per Unit Routine Peripheral IV Insertion Adult [OM.PC] Routine Resuscitation Status Routine 03/22/20 16:33 Heart Tones [RC] ASDIRECTED Peripheral IV Care [RC] . DIRECTED 03/22/20 16:45 Lactated Ringers [Ringers, Lactated] 1,000 ml IV ASDIRECTED Oxytocin/Lactated Ringers [Pitocin in LR 10 Units/1,000 ML] 10 unit in 1,000 ml IV .CONTINUOUS Oxytocin/Lactated Ringers [Pitocin in LR 10 Units/1,000 ML] 10 unit in 1,000 ml IV TITRATE 03/22/20 17:00 BILE ACIDS [REF] Stat 03/22/20 17:28 diphenhydrAMINE [Benadryl] 25 mg IVPUSH Q6H PRN - Assessment Assessment:: PPD#0 - Plan Plan:: * Routine cares * Breast feeding * Discharge home in 1-2 days
[2020-03-23] MEDS ORDERED: Docusate Sodium 100 MG Cap PO PRN (05:22)
[2020-03-23] MEDS ORDERED: Witch Hazel Medicated Pads 40/Jar TOP PRN (05:22)
[2020-03-23] MEDS ORDERED: Benzocaine/Menthol 20%-0.5% Spray 56 GM Canister TOP PRN (05:22)
[2020-03-23] MEDS: Acetaminophen 325 MG Tab PO PRN ×3 (06:23→18:04)
--- NOTE | 2020-03-23 07:55 | PCM48HPAN ---
Post Anesthesia Note - EVALUATION WITHIN 48HRS OF ANESTHETIC Vital Signs in Normal Range: Yes Patient Participated in Evaluation: Yes Respiratory Function Stable: Yes Airway Patent: Yes Cardiovascular Function Stable: Yes Hydration Status Stable: Yes Pain Control Satisfactory: Yes Nausea and Vomiting Control Satisfactory: Yes Mental Status Recovered: Yes Vital Signs: Last Vital Signs Temp 37.6 C 03/22/20 16:32 Pulse Resp 14 03/22/20 16:32 BP 115/73 03/22/20 16:32 Pulse Ox 100 03/22/20 16:32
[2020-03-23] MEDS: Ibuprofen 600 MG Tab PO PRN (12:42)
[2020-03-24] MEDS: Ibuprofen 600 MG Tab PO PRN (00:33)
--- NOTE | 2020-03-24 07:11 | PCM.PNPP ---
- General Info Date of Service: 03/24/20 Functional Status: Reports: Pain Controlled, Tolerating Diet, Ambulating, Urinating - Review of Systems General: Reports: No Symptoms Pulmonary: Reports: No Symptoms Cardiovascular: Reports: No Symptoms Gastrointestinal: Reports: No Symptoms Genitourinary: Reports: No Symptoms Musculoskeletal: Reports: No Symptoms Neurological: Reports: No Symptoms - Patient Data Vital Signs - Most Recent: Last Vital Signs Temp 36.7 C 03/24/20 05:19 Pulse 77 03/24/20 05:19 Resp 15 03/24/20 05:19 BP 117/72 03/24/20 05:19 Pulse Ox 100 03/24/20 05:19 Weight - Most Recent: 69.309 kg I&O - Last 24 Hours: Intake & Output 03/23/20 03/24/20 03/24/20 22:59 06:59 14:59 Intake Total 240 Balance 240 Med Orders - Current: Current Medications Acetaminophen (Tylenol) 650 mg PO Q4H PRN PRN Reason: mild pain or fever Last Admin: 03/23/20 18:04 Dose: 650 mg Documented by: Benzocaine/Menthol (Dermoplast Pain Relief [place]) 0 gm TOP ASDIRECTED PRN PRN Reason: Perineal Comfort Measure Last Admin: 03/23/20 05:45 Dose: 1 applic Documented by: Docusate Sodium (Colace) 100 mg PO BID PRN PRN Reason: Constipation Last Admin: 03/24/20 05:26 Dose: 100 mg Documented by: Ibuprofen (Motrin) 600 mg PO Q6H PRN PRN Reason: Mild pain or fever Last Admin: 03/24/20 00:33 Dose: 600 mg Documented by: Ramiro De La Cruz ([place]) 1 pad TOP ASDIRECTED PRN PRN Reason: Perineal Comfort Measure Last Admin: 03/23/20 05:45 Dose: 1 pad Documented by: Discontinued Medications Bupivacaine HCl (Sensorcaine-Mpf 0.25%) 10 ml .ROUTE .STK-MED ONE Stop: 03/23/20 00:01 Diphenhydramine HCl (Benadryl) 25 mg IVPUSH Q6H PRN PRN Reason: Itching Last Admin: 03/23/20 01:13 Dose: 25 mg Documented by: Diphenhydramine HCl (Benadryl) 25 mg IVPUSH Q6H PRN PRN Reason: pruritis Ephedrine Sulfate (Ephedrine Sulfate) 5 mg IVPUSH ASDIRECTED PRN PRN Reason: Hypotension Ephedrine Sulfate (Ephedrine 25 Mg/5 Ml Syringe) 25 mg IV .STK-MED ONE Stop: 03/23/20 00:01 Fentanyl (Sublimaze) 100 mcg EPIDUR Q3H PRN PRN Reason: Pain Fentanyl/Bupivacaine HCl (Fentanyl/Bupivacaine/Ns 2 Mcg-0.125% 100 Ml) 100 ml EPIDUR ASDIRECTED PRN PRN Reason: Pain Oxytocin/Lactated Ringer's (Pitocin In Lr 10 Units/1,000 Ml) 10 unit in 1,000 mls @ 12 mls/hr IV TITRATE MARCO ANTONIO; Protocol Last Titration: 03/23/20 04:30 Dose: 500 munits/min, 3,000 mls/hr Documented by: Oxytocin/Lactated Ringer's (Pitocin In Lr 10 Units/1,000 Ml) 10 unit in 1,000 mls @ 500 mls/hr IV .CONTINUOUS MARCO ANTONIO Lactated Ringer's (Ringers, Lactated) 1,000 mls @ 40 mls/hr IV ASDIRECTED MARCO ANTONIO Last Admin: 03/23/20 03:05 Dose: 40 mls/hr Documented by: Nalbuphine HCl (Nubain) 10 mg IVPUSH Q2H PRN PRN Reason: Pain Ondansetron HCl (Zofran) 4 mg IVPUSH Q4H PRN PRN Reason: Nausea/Vomiting Sodium Chloride (Saline Flush) 10 ml FLUSH ASDIRECTED PRN PRN Reason: Keep Vein Open - Infant Interaction Disposition, : [place] in Room with Family Interaction: Holding Feeding: Attempted ; Nursed Fair/Poor, Bottle Fed Support Person: - Recovery Exam Fundal Tone: Firm Fundal Level: 2 Fingerbreadths Below Umbilicus Fundal Placement: Midline Lochia Amount: Small Lochia Color: Rubra/Red Perineum Description: Intact, Minimal Bruising/Swelling Episiotomy/Laceration: Approximated Bladder Status: Voiding Urinary Elimination: Voided - Exam General: Alert, Oriented, Cooperative GI/Abdominal Exam: Soft, Non-Tender Extremities: Normal Inspection Skin: Warm, Dry, Intact, Other (itching resolved) - Problem List & Annotations (1) 37 weeks gestation of SNOMED Code(s): 41486468 Code(s): Z3A.37 - 37 WEEKS GESTATION OF Status: Acute (2) JESSIE positive SNOMED Code(s): 278144770 Code(s): R76.8 - OTHER SPECIFIED ABNORMAL IMMUNOLOGICAL FINDINGS IN SERUM Status: Acute (3) SS-A antibody positive SNOMED Code(s): 636208085, 509145189 Code(s): R76.8 - OTHER SPECIFIED ABNORMAL IMMUNOLOGICAL FINDINGS IN SERUM Status: Acute (4) Solar pruritus SNOMED Code(s): 722010229 Code(s): L29.9 - PRURITUS, UNSPECIFIED Status: Acute (5) Vaginal delivery SNOMED Code(s): 478988167 Code(s): O80 - ENCOUNTER FOR FULL-TERM UNCOMPLICATED DELIVERY Status: Acute - Problem List Review Problem List Initiated/Reviewed/Updated: Yes - My Orders Last 24 Hours: My Active Orders 03/23/20 Breakfast Regular Diet [DIET] 03/24/20 05:22 Heat Therapy [OM.PC] PRN 03/24/20 07:11 Ready for Discharge [RC] PER UNIT ROUTINE - Assessment Assessment:: PPD#1 - Plan Plan:: * Routine cares * Breast feeding and supplementing * Discharge home today
--- NOTE | 2020-03-24 07:11 | PCM.DCSUM1 ---
Discharge Summary - Discharge Data Discharge Date: 03/24/20 Discharge Disposition: Home, Self-Care 01 Condition: Good - Referral to Home Health Primary Care Physician: Pita Calix MD - Discharge Diagnosis/Problem(s) (1) 37 weeks gestation of SNOMED Code(s): 67203216 ICD Code: Z3A.37 - 37 WEEKS GESTATION OF Status: Acute (2) JESSIE positive SNOMED Code(s): 673953757 ICD Code: R76.8 - OTHER SPECIFIED ABNORMAL IMMUNOLOGICAL FINDINGS IN SERUM Status: Acute (3) SS-A antibody positive SNOMED Code(s): 951108670, 897430891 ICD Code: R76.8 - OTHER SPECIFIED ABNORMAL IMMUNOLOGICAL FINDINGS IN SERUM Status: Acute (4) Solar pruritus SNOMED Code(s): 919241239 ICD Code: L29.9 - PRURITUS, UNSPECIFIED Status: Acute (5) Vaginal delivery SNOMED Code(s): 157668628 ICD Code: O80 - ENCOUNTER FOR FULL-TERM UNCOMPLICATED DELIVERY Status: Acute - Patient Summary/Data Complications: None Consults: None Recommended Follow-up Testing/Procedures: Follow up in 3 weeks for check Hospital Course: 24-year-old presented at 37 and one sevenths weeks gestation for induction of labor for presumed cholestasis of . Bile acids ordered and still pending at time of discharge. Induction done with Pitocin and AROM. She progressed well to complete dilation and underwent an uncomplicated vaginal delivery. did well and was discharged home on day #1 - Patient Instructions Diet: Regular Diet as Tolerated Activity: As Tolerated Activity, Other: Pelvic rest for 6 weeks Driving: May Drive Today Showering/Bathing: May Shower Showering/Bathing, Other: May Bathe Notify Provider of: Fever, Increased Pain, Swelling and Redness, Drainage, Nausea and/or Vomiting - Discharge Plan *PRESCRIPTION DRUG MONITORING PROGRAM REVIEWED*: No *COPY OF PRESCRIPTION DRUG MONITORING REPORT IN PATIENT CHANDNI: No Home Medications: Home Meds Docusate Sodium [Colace] 100 mg PO BID PRN cap 03/24/20 [Rx] Ibuprofen [Motrin] 600 mg PO Q6H PRN tablet 03/24/20 [Rx] Patient Handouts: Tips for a Good Latch, [id number], Care After Vaginal Delivery Referrals: Pita Calix MD [Primary Care Provider] - (3 weeks for check - can be telehealth) - Discharge Summary/Plan Comment DC Time >30 min.: No - Patient Data Vitals - Most Recent: Last Vital Signs Temp 36.7 C 03/24/20 05:19 Pulse 77 03/24/20 05:19 Resp 15 03/24/20 05:19 BP 117/72 03/24/20 05:19 Pulse Ox 100 03/24/20 05:19 Weight - Most Recent: 69.309 kg I&O - Last 24 hours: Intake & Output 03/23/20 03/24/20 03/24/20 22:59 06:59 14:59 Intake Total 240 Balance 240 Med Orders - Current: Current Medications Acetaminophen (Tylenol) 650 mg PO Q4H PRN PRN Reason: mild pain or fever Last Admin: 03/23/20 18:04 Dose: 650 mg Documented by: Benzocaine/Menthol (Dermoplast Pain Relief [place]) 0 gm TOP ASDIRECTED PRN PRN Reason: Perineal Comfort Measure Last Admin: 03/23/20 05:45 Dose: 1 applic Documented by: Docusate Sodium (Colace) 100 mg PO BID PRN PRN Reason: Constipation Last Admin: 03/24/20 05:26 Dose: 100 mg Documented by: Ibuprofen (Motrin) 600 mg PO Q6H PRN PRN Reason: Mild pain or fever Last Admin: 03/24/20 00:33 Dose: 600 mg Documented by: Ramiro De La Cruz ([place]) 1 pad TOP ASDIRECTED PRN PRN Reason: Perineal Comfort Measure Last Admin: 03/23/20 05:45 Dose: 1 pad Documented by: Discontinued Medications Bupivacaine HCl (Sensorcaine-Mpf 0.25%) 10 ml .ROUTE .STK-MED ONE Stop: 03/23/20 00:01 Diphenhydramine HCl (Benadryl) 25 mg IVPUSH Q6H PRN PRN Reason: Itching Last Admin: 03/23/20 01:13 Dose: 25 mg Documented by: Diphenhydramine HCl (Benadryl) 25 mg IVPUSH Q6H PRN PRN Reason: pruritis Ephedrine Sulfate (Ephedrine Sulfate) 5 mg IVPUSH ASDIRECTED PRN PRN Reason: Hypotension Ephedrine Sulfate (Ephedrine 25 Mg/5 Ml Syringe) 25 mg IV .[facility] ONE Stop: 03/23/20 00:01 Fentanyl (Sublimaze) 100 mcg EPIDUR Q3H PRN PRN Reason: Pain Fentanyl/Bupivacaine HCl (Fentanyl/Bupivacaine/Ns 2 Mcg-0.125% 100 Ml) 100 ml EPIDUR ASDIRECTED PRN PRN Reason: Pain Oxytocin/Lactated Ringer's (Pitocin In Lr 10 Units/1,000 Ml) 10 unit in 1,000 mls @ 12 mls/hr IV TITRATE MARCO ANTONIO; Protocol Last Titration: 03/23/20 04:30 Dose: 500 munits/min, 3,000 mls/hr Documented by: Oxytocin/Lactated Ringer's (Pitocin In Lr 10 Units/1,000 Ml) 10 unit in 1,000 mls @ 500 mls/hr IV .CONTINUOUS MARCO ANTONIO Lactated Ringer's (Ringers, Lactated) 1,000 mls @ 40 mls/hr IV ASDIRECTED MARCO ANTONIO Last Admin: 03/23/20 03:05 Dose: 40 mls/hr Documented by: Nalbuphine HCl (Nubain) 10 mg IVPUSH Q2H PRN PRN Reason: Pain Ondansetron HCl (Zofran) 4 mg IVPUSH Q4H PRN PRN Reason: Nausea/Vomiting Sodium Chloride (Saline Flush) 10 ml FLUSH ASDIRECTED PRN PRN Reason: Keep Vein Open
== END 2020-03-24 09:30 | disposition home or self-care (01) | DRG 560 ==
LOC: JD.OBCHECK 15:46 → JD.OB 15:49 → OBSVTOIN 03-23 04:28 → JD.OB 03-23 04:29
PROVIDERS: ADMIT Obstetrics & Gynecology; ATTEND Obstetrics & Gynecology
PROC: 10E0XZZ Delivery of Products of Conception, External Approach (ICD-10-PCS; principal; 2020-03-23)
PROC: 10907ZC Drainage of Amniotic Fluid, Therapeutic from Products of Conception, Via Natural or Artificial Opening (ICD-10-PCS; 2020-03-23)
PROC: 3E033VJ Introduction of Other Hormone into Peripheral Vein, Percutaneous Approach (ICD-10-PCS; 2020-03-23)
PROC: 0HQ9XZZ Repair Perineum Skin, External Approach (ICD-10-PCS; 2020-03-23)
PROC: 3E0R3BZ Introduction of Anesthetic Agent into Spinal Canal, Percutaneous Approach (ICD-10-PCS; 2020-03-23)
PROC: 00HU33Z Insertion of Infusion Device into Spinal Canal, Percutaneous Approach (ICD-10-PCS; 2020-03-23)
DX: O26.62 Liver and biliary tract disorders in childbirth (principal); K83.1 Obstruction of bile duct; Z3A.37 37 weeks gestation of pregnancy; Z37.0 Single live birth; R76.8 Other specified abnormal immunological findings in serum; O26.893 Other specified pregnancy related conditions, third trimester; L29.9 Pruritus, unspecified; O99.52 Diseases of the respiratory system complicating childbirth; J45.909 Unspecified asthma, uncomplicated; O70.0 First degree perineal laceration during delivery
CPT/HCPCS: 36415; 51702; 59025; 59409; 80053; 82239; 85027; 86592; 86850; 86900; 86901; A9270-GY; J0171; J1200; J2590; J3490; J7120

== ENCOUNTER 2021-10-25 07:07 | Inpatient (IN) | payer BC ==
[~2021-10-25 07:07] MED LIST: Bupivacaine 0.25% 10 ML SDV ONE
[2021-10-25] MEDS ORDERED: Sodium Chloride 0.9% 10 ML Syringe FLUSH PRN (07:48)
[2021-10-25] MEDS ORDERED: Acetaminophen 325 MG Tab PO PRN ×2 (07:48→21:54)
[2021-10-25] MEDS ORDERED: Ondansetron 4 MG/2 ML SDV IVPUSH PRN (07:48)
[2021-10-25] MEDS ORDERED: Nalbuphine HCl 10 MG/ 1ML Amp IVPUSH PRN (07:48)
[2021-10-25] MEDS ORDERED: Oxytocin/Lactated Ringers 10 UNIT/1,000 ML BAG IV SCH ×2 (08:00)
[2021-10-25] MEDS: Lactated Ringers 1,000 ML IV SCH ×3 (08:09→14:41)
[2021-10-25] MEDS: Sodium Chloride 0.9% 10 ML Syringe FLUSH SCH (09:56)
[2021-10-25] MEDS ORDERED: Calcium Carbonate 500 MG Tab.Chew PO PRN (11:20)
[2021-10-25] MEDS ORDERED: Bupivacaine/fentaNYL/NS 100 ML Bag EPIDUR PRN (14:13)
[2021-10-25] MEDS ORDERED: ePHEDrine 50 MG/ML SDV IVPUSH PRN (14:13)
[2021-10-25] MEDS ORDERED: fentaNYL 100 MCG/2 ML SDV EPIDUR PRN (14:13)
[2021-10-25] MEDS ORDERED: diphenhydrAMINE 50 MG/ML SDV IVPUSH PRN (14:13)
[2021-10-25] MEDS ORDERED: Oxytocin/Lactated Ringers 20 UNIT/1,000 ML BAG IV SCH (18:45)
[2021-10-25] MEDS ORDERED: Benzocaine/Menthol 20%-0.5% Spray 78 GM Cannister TOP PRN (21:54)
[2021-10-25] MEDS: Ibuprofen 600 MG Tab PO PRN (23:05)
[2021-10-25] MEDS: Docusate Sodium 100 MG Cap PO PRN (23:05)
[2021-10-25] MEDS: Witch Hazel Medicated Pads 40/Jar TOP PRN (23:07)
[2021-10-26] MEDS: Ibuprofen 600 MG Tab PO PRN ×3 (05:10→18:23)
[2021-10-26] MEDS: Sodium Chloride 0.9% 10 ML Syringe FLUSH SCH (05:44)
[2021-10-26] MEDS ORDERED: DULoxetine 30 MG Cap PO SCH (09:00)
[2021-10-26] MEDS: Docusate Sodium 100 MG Cap PO PRN (18:22)
[2021-10-26] MEDS: Witch Hazel Medicated Pads 40/Jar TOP PRN (21:21)
== END 2021-10-27 10:50 | disposition home or self-care (01) | DRG 560 ==
LOC: JD.OB 07:07 → OBSVTOIN 20:54 → JD.OB 20:55
PROVIDERS: ADMIT Obstetrics & Gynecology; ATTEND Obstetrics & Gynecology
PROC: 10E0XZZ Delivery of Products of Conception, External Approach (ICD-10-PCS; principal; 2021-10-25)
PROC: 10E0XZZ Delivery of Products of Conception, External Approach (ICD-10-PCS; 2021-10-25)
PROC: 10907ZC Drainage of Amniotic Fluid, Therapeutic from Products of Conception, Via Natural or Artificial Opening (ICD-10-PCS; 2021-10-25)
PROC: 3E033VJ Introduction of Other Hormone into Peripheral Vein, Percutaneous Approach (ICD-10-PCS; 2021-10-25)
PROC: 0KQM0ZZ Repair Perineum Muscle, Open Approach (ICD-10-PCS; 2021-10-25)
PROC: 3E0R3BZ Introduction of Anesthetic Agent into Spinal Canal, Percutaneous Approach (ICD-10-PCS; 2021-10-25)
DX: O26.62 Liver and biliary tract disorders in childbirth (principal); K83.1 Obstruction of bile duct; Z3A.37 37 weeks gestation of pregnancy; Z37.0 Single live birth; Z79.899 Other long term (current) drug therapy; O70.1 Second degree perineal laceration during delivery; M79.7 Fibromyalgia; Z87.891 Personal history of nicotine dependence
CPT/HCPCS: 01967; 36415; 51702; 59025; 59409; 84450; 84460; 85027; 86592; 86850; 86900; 86901; A9270-GY; J1200; J2590; J3010; J3490; J7120

== ENCOUNTER 2021-12-24 08:59 | Emergency (ER) | payer BC | END 2021-12-24 13:10 | disposition home or self-care (01) | LOC: JD.ED 08:59 | DX: R07.89 Other chest pain (principal); Z91.09 Other allergy status, other than to drugs and biological substances; Z86.16 Personal history of COVID-19 | CPT/HCPCS: 36415; 71046; 71046-26; 80053; 83690; 84484; 85007; 85027; 85379; 93010; 99283; 99285 ==

== ENCOUNTER 2022-04-07 16:23 | Emergency (ER) | payer BC | END 2022-04-07 19:29 | LOC: JD.ED 16:23 | DX: Z53.21 Procedure and treatment not carried out due to patient leaving prior to being seen by health care provider (principal) ==